=== PATIENT | male | born 1955 | race Caucasian/White ===

== ENCOUNTER 2018-04-05 11:06 | Emergency (ER) | payer MEDICARE, OTHER | END 2018-04-05 13:04 | disposition home or self-care (01) | LOC: FTE 11:06 | DX: J06.9 Acute upper respiratory infection, unspecified (principal); I10 Essential (primary) hypertension; E66.9 Obesity, unspecified; Z68.42 Body mass index [BMI] 45.0-49.9, adult | CPT/HCPCS: 71046; 99284-25 ==

== ENCOUNTER 2018-10-08 23:24 | Inpatient (IN) | payer MEDICARE, OTHER ==
[2018-10-08] MEDS: ONDANSETRON 4 MG INJ IV (23:54)
[2018-10-08] MEDS: HYDROmorphONE 1 MG/ML SYG IV (23:54)
[2018-10-09] MEDS: SOD CHLORIDE 0.9% 1,000 ML IV ×5 (00:24→21:30)
[2018-10-09 00:27] LABS: ADD MAN DIFF? NO; BASOPHILS % 0.3 % (0.0-2.0); EOSINOPHILS % 0.2 % (0.0-7.0); HEMATOCRIT 46.2 % (42.0-52.0); HEMOGLOBIN 15.2 g/dl (14.0-18.0); LYMPHOCYTES # 1.1 10^3/ul (0.8-2.9); LYMPHOCYTES % 9.5 % (15.0-51.0); MEAN CORPUSCULAR HEMOGLOBIN 30.5 pg (29.0-33.0); MEAN CORPUSCULAR HGB CONC 32.9 g/dl (32.0-37.0); MEAN CORPUSCULAR VOLUME 92.6 fl (82.0-101.0); MEAN PLATELET VOLUME 11.5 fl (7.4-10.4); MONOCYTES % 8.2 % (0.0-11.0); NEUTROPHIL # 9.6 10^3/ul (1.6-7.5); NEUTROPHILS % 81.4 % (39.0-77.0); PLATELET COUNT 279 10^3/UL (140-415); RED BLOOD COUNT 4.99 10^6/ul (4.70-6.10)
[2018-10-09 00:27] LABS: WHITE BLOOD COUNT 11.8 10^3/ul (4.8-10.8)
[2018-10-09 00:59] LABS: ALANINE AMINOTRANSFERASE 30 IU/L (13-69); ALBUMIN 4.6 g/dl (3.3-4.9); ALBUMIN/GLOBULIN RATIO 1.27; ALKALINE PHOSPHATASE 81 IU/L (42-121); ANION GAP 19 (5-13); ASPARTATE AMINO TRANSFERASE 20 IU/L (15-46); BILIRUBIN,INDIRECT 0.3 mg/dl (0-1.1); BILIRUBIN,TOTAL 0.3 mg/dl (0.2-1.3); BLOOD UREA NITROGEN 112 mg/dl (7-20); CARBON DIOXIDE 17 mmol/L (21-31); CHLORIDE 102 mmol/L (97-110); CREATININE 7.27 mg/dl (0.61-1.24); Estimated GFR 8 mL/min (>60); GLUCOSE 176 mg/dl (70-220); LIPASE 89 U/L (23-300); POTASSIUM 5.8 mmol/L (3.5-5.1); SODIUM 138 mmol/L (135-144); TOTAL PROTEIN 8.2 g/dl (6.1-8.1)
[2018-10-09] MEDS ORDERED: NACL 0.9% 3 ML SYG IV (04:00)
[2018-10-09] MEDS: NA POLYST SULFON 15 GM/60 ML BTL PO (04:30)
[2018-10-09] MEDS: DEXTROSE 5%-0.45% NACL 1,000 ML IV (04:48)
[2018-10-09] MEDS: ALBUMIN HUMAN 25% 100 ML IV (05:54)
[2018-10-09 08:04] LABS: ADD UMIC YES; UR ASCORBIC ACID NEGATIVE (NEGATIVE); UR BILIRUBIN (Dip) NEGATIVE (NEGATIVE); UR BLOOD (Dip) 1+ mg/dL (NEGATIVE); UR CLARITY CLOUDY (CLEAR); UR COLOR YELLOW (YELLOW); UR GLUCOSE (Dip) NEGATIVE (NEGATIVE); UR KETONES (Dip) NEGATIVE (NEGATIVE); UR LEUKOCYTE ESTERASE (Dip) 2+ Leu/ul (NEGATIVE); UR NITRITE (Dip) NEGATIVE (NEGATIVE); UR RBC 2 /HPF (0-5); UR SPECIFIC GRAVITY (Dip) 1.015 (1.003-1.030); UR TOTAL PROTEIN (Dip) 1+ mg/dl (NEGATIVE); UR UROBILINOGEN (Dip) NEGATIVE (NEGATIVE); UR WBC 28 /HPF (0-5)
[2018-10-09 08:49] LABS: ADD MAN DIFF? NO
[2018-10-09 08:53] LABS: BASOPHILS % 0.3 % (0.0-2.0); EOSINOPHILS % 0.2 % (0.0-7.0); HEMATOCRIT 42.6 % (42.0-52.0); LYMPHOCYTES # 0.8 10^3/ul (0.8-2.9); LYMPHOCYTES % 7.6 % (15.0-51.0); MEAN CORPUSCULAR HEMOGLOBIN 30.5 pg (29.0-33.0); MEAN CORPUSCULAR HGB CONC 32.9 g/dl (32.0-37.0); MEAN CORPUSCULAR VOLUME 92.8 fl (82.0-101.0); MEAN PLATELET VOLUME 11.7 fl (7.4-10.4); MONOCYTE # 1.1 10^3/ul (0.3-0.9); MONOCYTES % 11.4 % (0.0-11.0); NEUTROPHIL # 8.1 10^3/ul (1.6-7.5); NEUTROPHILS % 80.3 % (39.0-77.0); PLATELET COUNT 247 10^3/UL (140-415); RED BLOOD COUNT 4.59 10^6/ul (4.70-6.10); RED CELL DISTRIBUTION WIDTH 14.1 % (11.5-14.5)
[2018-10-09] MEDS: FLUTICASONE 0.05% 16 GM NAS SPRAY NASAL ×3 (09:00→20:53)
[2018-10-09 09:17] LABS: ALANINE AMINOTRANSFERASE 18 IU/L (13-69); ALBUMIN 4.6 g/dl (3.3-4.9); ALBUMIN/GLOBULIN RATIO 1.17; ALKALINE PHOSPHATASE 72 IU/L (42-121); ANION GAP 18 (5-13); ASPARTATE AMINO TRANSFERASE 16 IU/L (15-46); BILIRUBIN,INDIRECT 0.3 mg/dl (0-1.1); BILIRUBIN,TOTAL 0.3 mg/dl (0.2-1.3); BLOOD UREA NITROGEN 114 mg/dl (7-20); CALCIUM 9.7 mg/dl (8.4-10.2); CARBON DIOXIDE 19 mmol/L (21-31); CHLORIDE 102 mmol/L (97-110); CREATININE 7.45 mg/dl (0.61-1.24); Estimated GFR 7 mL/min (>60); GLUCOSE 158 mg/dl (70-220); POTASSIUM 5.1 mmol/L (3.5-5.1); SODIUM 139 mmol/L (135-144); TOTAL PROTEIN 8.5 g/dl (6.1-8.1)
[2018-10-09] MEDS: ONDANSETRON 4 MG INJ IV ×2 (09:27→22:10)
[2018-10-09] MEDS: FAMOTIDINE 20 MG INJ IV (09:27)
[2018-10-09] MEDS: morphine 2 MG INJ IV ×4 (09:28→22:11)
[2018-10-09 13:59] LABS: POTASSIUM,URINE RANDOM 43.7 mmol/L (25-125)
[2018-10-09 14:06] LABS: SODIUM,URINE RANDOM < 13 mmol/L (30-90)
[2018-10-09 14:29] LABS: CREATININE,URINE RANDOM 357.65 mg/dl (20-370)
[2018-10-09 15:25] LABS: ADD UMIC YES; UR ASCORBIC ACID NEGATIVE (NEGATIVE); UR BILIRUBIN (Dip) NEGATIVE (NEGATIVE); UR BLOOD (Dip) 1+ mg/dL (NEGATIVE); UR CLARITY SLIGHTLY CLOUDY (CLEAR); UR COLOR YELLOW (YELLOW); UR GLUCOSE (Dip) NEGATIVE (NEGATIVE); UR KETONES (Dip) NEGATIVE (NEGATIVE); UR LEUKOCYTE ESTERASE (Dip) 1+ Leu/ul (NEGATIVE); UR NITRITE (Dip) NEGATIVE (NEGATIVE); UR RBC 1 /HPF (0-5); UR SPECIFIC GRAVITY (Dip) 1.013 (1.003-1.030); UR TOTAL PROTEIN (Dip) NEGATIVE (NEGATIVE); UR URIC ACID CRYSTAL MODERATE /HPF (NONE SEEN); UR UROBILINOGEN (Dip) NEGATIVE (NEGATIVE); UR WBC 5 /HPF (0-5)
[2018-10-09] MEDS: METOCLOPRAMIDE 10 MG INJ IV (17:53)
[2018-10-10] MEDS: METOCLOPRAMIDE 10 MG INJ IV ×5 (00:31→23:09)
[2018-10-10] MEDS: morphine 2 MG INJ IV ×6 (02:07→23:10)
[2018-10-10] MEDS: ONDANSETRON 4 MG INJ IV ×4 (02:10→19:01)
[2018-10-10] MEDS: SOD CHLORIDE 0.9% 1,000 ML IV ×2 (04:19→05:30)
[2018-10-10 07:20] LABS: ADD MAN DIFF? NO
[2018-10-10 07:30] LABS: BASOPHIL # 0.1 10^3/ul (0.0-0.1); BASOPHILS % 0.7 % (0.0-2.0); EOSINOPHILS # 0.1 10^3/ul (0.0-0.5); EOSINOPHILS % 1.8 % (0.0-7.0); HEMATOCRIT 41.3 % (42.0-52.0); HEMOGLOBIN 13.4 g/dl (14.0-18.0); LYMPHOCYTES # 0.9 10^3/ul (0.8-2.9); LYMPHOCYTES % 12.7 % (15.0-51.0); MEAN CORPUSCULAR HEMOGLOBIN 30.3 pg (29.0-33.0); MEAN CORPUSCULAR HGB CONC 32.4 g/dl (32.0-37.0); MEAN CORPUSCULAR VOLUME 93.4 fl (82.0-101.0); MEAN PLATELET VOLUME 11.7 fl (7.4-10.4); MONOCYTE # 1.1 10^3/ul (0.3-0.9); MONOCYTES % 14.8 % (0.0-11.0); NEUTROPHILS % 69.7 % (39.0-77.0); PLATELET COUNT 219 10^3/UL (140-415); RED BLOOD COUNT 4.42 10^6/ul (4.70-6.10); RED CELL DISTRIBUTION WIDTH 14.5 % (11.5-14.5)
[2018-10-10 07:30] LABS: WHITE BLOOD COUNT 7.2 10^3/ul (4.8-10.8)
[2018-10-10 07:46] LABS: ANION GAP 13 (5-13); BLOOD UREA NITROGEN 97 mg/dl (7-20); CALCIUM 9.4 mg/dl (8.4-10.2); CARBON DIOXIDE 20 mmol/L (21-31); CHLORIDE 112 mmol/L (97-110); CREATININE 4.08 mg/dl (0.61-1.24); Estimated GFR 15 mL/min (>60); GLUCOSE 124 mg/dl (70-220); MAGNESIUM 1.6 mg/dl (1.7-2.5); PHOSPHORUS 5.1 mg/dl (2.5-4.9); POTASSIUM 5.1 mmol/L (3.5-5.1); SODIUM 145 mmol/L (135-144)
[2018-10-10] MEDS: FLUTICASONE 0.05% 16 GM NAS SPRAY NASAL ×2 (08:52→21:31)
[2018-10-10] MEDS: SOD CHLORIDE 0.45% 1,000 ML IV ×3 (08:52→17:23)
[2018-10-10] MEDS: FAMOTIDINE 20 MG INJ IV (08:52)
[2018-10-10] MEDS: MAGNESIUM SULFATE 1 GM/D5W 100 ML IVPB (11:50)
[2018-10-10] MEDS: DIATR MEGLU/DIATRIZOATE SODIUM 120 ML BTL (11:50)
[2018-10-10] MEDS ORDERED: METOCLOPRAMIDE 10 MG INJ IV (12:30)
[2018-10-10] MEDS: POLYETHYLENE GLYCOL 17 GM PACKET PO (14:52)
[2018-10-10] MEDS ORDERED: HEPARIN 5,000 UNIT/0.5 ML VIAL (21:17)
[2018-10-10] MEDS: HEPARIN 5,000 UNIT/1 ML VIAL SC (21:36)
[2018-10-11] MEDS: SOD CHLORIDE 0.45% 1,000 ML IV ×4 (00:48→17:04)
[2018-10-11] MEDS: morphine 2 MG INJ IV ×2 (03:02→07:08)
[2018-10-11] MEDS: ONDANSETRON 4 MG INJ IV (03:02)
[2018-10-11] MEDS: METOCLOPRAMIDE 10 MG INJ IV ×3 (07:07→17:03)
[2018-10-11] MEDS ORDERED: HEPARIN 5,000 UNIT/0.5 ML VIAL ×2 (08:54→19:23)
[2018-10-11 08:59] LABS: ADD MAN DIFF? NO
[2018-10-11 09:02] LABS: WHITE BLOOD COUNT 8.7 10^3/ul (4.8-10.8)
[2018-10-11 09:02] LABS: BASOPHILS % 0.5 % (0.0-2.0); EOSINOPHILS # 0.2 10^3/ul (0.0-0.5); EOSINOPHILS % 2.4 % (0.0-7.0); HEMATOCRIT 42.4 % (42.0-52.0); HEMOGLOBIN 13.7 g/dl (14.0-18.0); LYMPHOCYTES # 0.9 10^3/ul (0.8-2.9); LYMPHOCYTES % 9.9 % (15.0-51.0); MEAN CORPUSCULAR HEMOGLOBIN 30.9 pg (29.0-33.0); MEAN CORPUSCULAR HGB CONC 32.3 g/dl (32.0-37.0); MEAN CORPUSCULAR VOLUME 95.7 fl (82.0-101.0); MONOCYTE # 1.2 10^3/ul (0.3-0.9); MONOCYTES % 14.2 % (0.0-11.0); NEUTROPHIL # 6.3 10^3/ul (1.6-7.5); NEUTROPHILS % 72.8 % (39.0-77.0); PLATELET COUNT 206 10^3/UL (140-415); RED BLOOD COUNT 4.43 10^6/ul (4.70-6.10); RED CELL DISTRIBUTION WIDTH 14.3 % (11.5-14.5)
[2018-10-11] MEDS: POLYETHYLENE GLYCOL 17 GM PACKET PO (09:12)
[2018-10-11] MEDS: FAMOTIDINE 20 MG INJ IV (09:12)
[2018-10-11] MEDS: FLUTICASONE 0.05% 16 GM NAS SPRAY NASAL ×2 (09:14→19:25)
[2018-10-11] MEDS: HEPARIN 5,000 UNIT/1 ML VIAL SC ×2 (09:24→19:27)
[2018-10-11 09:34] LABS: ANION GAP 12 (5-13); BLOOD UREA NITROGEN 63 mg/dl (7-20); CALCIUM 9.5 mg/dl (8.4-10.2); CARBON DIOXIDE 21 mmol/L (21-31); CHLORIDE 113 mmol/L (97-110); CREATININE 1.87 mg/dl (0.61-1.24); Estimated GFR 37 mL/min (>60); GLUCOSE 123 mg/dl (70-220); MAGNESIUM 1.7 mg/dl (1.7-2.5); PHOSPHORUS 3.8 mg/dl (2.5-4.9); POTASSIUM 5.9 mmol/L (3.5-5.1); SODIUM 146 mmol/L (135-144)
[2018-10-11] MEDS: HYDROCODONE/APAP (7.5/325) TAB PO ×2 (13:00→19:25)
[2018-10-11 14:46] LABS: POTASSIUM 4.9 mmol/L (3.5-5.1)
[2018-10-11 15:46] LABS: CREATININE, RANDOM URINE 354 mg/dL (20-320); MICROALBUMIN 8.5 mg/dL; MICROALBUMIN/CREATININE RATIO 24 (<30)
[2018-10-12] MEDS: HYDROCODONE/APAP (7.5/325) TAB PO ×2 (00:56→22:09)
[2018-10-12] MEDS: METOCLOPRAMIDE 10 MG INJ IV ×4 (00:56→17:38)
[2018-10-12] MEDS: SOD CHLORIDE 0.45% 1,000 ML IV ×5 (00:56→20:09)
[2018-10-12 08:42] LABS: ADD MAN DIFF? NO
[2018-10-12 08:46] LABS: BASOPHIL # 0.1 10^3/ul (0.0-0.1); BASOPHILS % 0.6 % (0.0-2.0); EOSINOPHILS # 0.4 10^3/ul (0.0-0.5); EOSINOPHILS % 4.8 % (0.0-7.0); HEMATOCRIT 42.1 % (42.0-52.0); HEMOGLOBIN 13.8 g/dl (14.0-18.0); LYMPHOCYTES # 1.4 10^3/ul (0.8-2.9); MEAN CORPUSCULAR HEMOGLOBIN 30.7 pg (29.0-33.0); MEAN CORPUSCULAR HGB CONC 32.8 g/dl (32.0-37.0); MEAN CORPUSCULAR VOLUME 93.6 fl (82.0-101.0); MEAN PLATELET VOLUME 11.9 fl (7.4-10.4); MONOCYTE # 1.2 10^3/ul (0.3-0.9); MONOCYTES % 13.5 % (0.0-11.0); NEUTROPHIL # 5.6 10^3/ul (1.6-7.5); NEUTROPHILS % 64.8 % (39.0-77.0); PLATELET COUNT 220 10^3/UL (140-415)
[2018-10-12 08:46] LABS: WHITE BLOOD COUNT 8.7 10^3/ul (4.8-10.8)
[2018-10-12] MEDS: FLUTICASONE 0.05% 16 GM NAS SPRAY NASAL ×2 (09:00→20:14)
[2018-10-12 09:07] LABS: ANION GAP 11 (5-13); BLOOD UREA NITROGEN 34 mg/dl (7-20); CALCIUM 9.4 mg/dl (8.4-10.2); CARBON DIOXIDE 23 mmol/L (21-31); CHLORIDE 105 mmol/L (97-110); CREATININE 1.43 mg/dl (0.61-1.24); Estimated GFR 50 mL/min (>60); GLUCOSE 124 mg/dl (70-220); MAGNESIUM 1.3 mg/dl (1.7-2.5); PHOSPHORUS 3.3 mg/dl (2.5-4.9); POTASSIUM 4.5 mmol/L (3.5-5.1); SODIUM 139 mmol/L (135-144)
[2018-10-12] MEDS ORDERED: HEPARIN 5,000 UNIT/0.5 ML VIAL ×2 (09:13→20:12)
[2018-10-12] MEDS: HEPARIN 5,000 UNIT/1 ML VIAL SC ×2 (09:21→20:14)
[2018-10-12] MEDS: POLYETHYLENE GLYCOL 17 GM PACKET PO (09:23)
[2018-10-12] MEDS: FAMOTIDINE 20 MG INJ IV (09:23)
[2018-10-12] MEDS: LACTATED RINGER'S 500 ML IV (14:49)
[2018-10-12] MEDS: MAGNESIUM SULFATE 2 GM/50 ML 50 ML IVPB (16:37)
[2018-10-13] MEDS: SOD CHLORIDE 0.45% 1,000 ML IV ×2 (02:51→10:25)
[2018-10-13] MEDS: METOCLOPRAMIDE 10 MG INJ IV ×3 (06:00→12:42)
[2018-10-13] MEDS: ONDANSETRON 4 MG INJ IV (07:36)
[2018-10-13] MEDS: POLYETHYLENE GLYCOL 17 GM PACKET PO (08:06)
[2018-10-13] MEDS: FLUTICASONE 0.05% 16 GM NAS SPRAY NASAL (08:06)
[2018-10-13] MEDS ORDERED: HEPARIN 5,000 UNIT/0.5 ML VIAL (08:07)
[2018-10-13] MEDS: FAMOTIDINE 20 MG INJ IV (08:09)
[2018-10-13] MEDS: HEPARIN 5,000 UNIT/1 ML VIAL SC (08:29)
== END 2018-10-13 14:30 | disposition home or self-care (01) | DRG 389 ==
LOC: E/R 23:24 → 5EC 10-09 02:53
PROVIDERS: Internal Medicine
DX: K56.600 Partial intestinal obstruction, unspecified as to cause (principal); N17.9 Acute kidney failure, unspecified; E87.2 Acidosis; Z68.42 Body mass index [BMI] 45.0-49.9, adult; E66.01 Morbid (severe) obesity due to excess calories; E87.5 Hyperkalemia; I48.0 Paroxysmal atrial fibrillation; E86.0 Dehydration; I12.9 Hypertensive chronic kidney disease with stage 1 through stage 4 chronic kidney disease, or unspecified chronic kidney disease; N18.2 Chronic kidney disease, stage 2 (mild); E87.6 Hypokalemia; N40.0 Benign prostatic hyperplasia without lower urinary tract symptoms; R11.10 Vomiting, unspecified; N20.0 Calculus of kidney; Z87.891 Personal history of nicotine dependence; Z90.49 Acquired absence of other specified parts of digestive tract
CPT/HCPCS: 71045; 74018; 74176; 76775; 80048; 80053; 81001; 81003; 82043; 82436; 82962; 83690; 83735; 84100; 84132; 84133; 84155; 84300; 85025; 87045; 87075

== ENCOUNTER 2019-06-09 03:21 | Inpatient (IN) | payer MEDICARE, OTHER ==
[2019-06-09] MEDS: SOD CHLORIDE 0.9% 1,000 ML IV ×2 (03:51→11:21)
[2019-06-09] MEDS: ONDANSETRON 4 MG INJ IV ×4 (03:51→22:30)
[2019-06-09] MEDS: KETOROLAC 30 MG INJ IV (03:51)
[2019-06-09 04:23] LABS: ADD MAN DIFF? NO
[2019-06-09 04:26] LABS: BASOPHILS % 0.3 % (0.0-2.0); EOSINOPHILS % 0.2 % (0.0-7.0); HEMATOCRIT 46.5 % (42.0-52.0); HEMOGLOBIN 15.7 g/dl (14.0-18.0); LYMPHOCYTES # 0.9 10^3/ul (0.8-2.9); LYMPHOCYTES % 7.4 % (15.0-51.0); MEAN CORPUSCULAR HEMOGLOBIN 30.6 pg (29.0-33.0); MEAN CORPUSCULAR HGB CONC 33.8 g/dl (32.0-37.0); MEAN CORPUSCULAR VOLUME 90.6 fl (82.0-101.0); MEAN PLATELET VOLUME 11.1 fl (7.4-10.4); MONOCYTE # 0.8 10^3/ul (0.3-0.9); MONOCYTES % 6.3 % (0.0-11.0); NEUTROPHIL # 10.6 10^3/ul (1.6-7.5); NEUTROPHILS % 85.5 % (39.0-77.0); PLATELET COUNT 333 10^3/UL (140-415); RED BLOOD COUNT 5.13 10^6/ul (4.70-6.10); RED CELL DISTRIBUTION WIDTH 13.2 % (11.5-14.5)
[2019-06-09 04:26] LABS: WHITE BLOOD COUNT 12.4 10^3/ul (4.8-10.8)
[2019-06-09 04:43] LABS: ALANINE AMINOTRANSFERASE 31 IU/L (13-69); ALBUMIN 4.8 g/dl (3.3-4.9); ALBUMIN/GLOBULIN RATIO 0.97; ALKALINE PHOSPHATASE 102 IU/L (42-121); ANION GAP 21 (5-13); ASPARTATE AMINO TRANSFERASE 22 IU/L (15-46); BILIRUBIN,INDIRECT 0.6 mg/dl (0-1.1); BILIRUBIN,TOTAL 0.6 mg/dl (0.2-1.3); BLOOD UREA NITROGEN 102 mg/dl (7-20); CALCIUM 10.2 mg/dl (8.4-10.2); CARBON DIOXIDE 18 mmol/L (21-31); CHLORIDE 98 mmol/L (97-110); Estimated GFR 5 mL/min (>60); GLUCOSE 180 mg/dl (70-220); LIPASE 204 U/L (23-300); POTASSIUM 5.2 mmol/L (3.5-5.1); SODIUM 137 mmol/L (135-144); TOTAL PROTEIN 9.7 g/dl (6.1-8.1)
[2019-06-09] MEDS: OXYCODONE/ACETAMINOPHEN (5/325) TAB PO (04:57)
[2019-06-09 05:02] LABS: INR 1.14; PROTIME 14.7 Sec (11.9-14.9); PT RATIO 1.1
[2019-06-09 05:03] LABS: PARTIAL THROMBOPLASTIN TIME 33.6 Sec (23.0-35.0)
[2019-06-09] MEDS ORDERED: ADENOSINE 3 MG/ML SYRINGE IV (07:00)
[2019-06-09] MEDS ORDERED: morphine 4 MG/ML VIAL (07:19)
[2019-06-09] MEDS: morphine 4 MG/ML VIAL IV ×3 (07:22→22:30)
[2019-06-09] MEDS: morphine 2 MG INJ IV ×2 (10:32→11:21)
[2019-06-09] MEDS ORDERED: ZOLPIDEM 5 MG TAB PO (11:30)
[2019-06-09 11:44] LABS: PHOSPHORUS 8.8 mg/dl (2.5-4.9)
[2019-06-09 11:44] LABS: MAGNESIUM 1.6 mg/dl (1.7-2.5)
[2019-06-09 11:46] LABS: ANION GAP 18 (5-13); BLOOD UREA NITROGEN 106 mg/dl (7-20); CALCIUM 9.3 mg/dl (8.4-10.2); CARBON DIOXIDE 15 mmol/L (21-31); CHLORIDE 103 mmol/L (97-110); CREATININE 9.97 mg/dl (0.61-1.24); Estimated GFR 5 mL/min (>60); GLUCOSE 158 mg/dl (70-220); POTASSIUM 5.2 mmol/L (3.5-5.1); SODIUM 136 mmol/L (135-144)
[2019-06-09 11:50] LABS: AADO2 Arterial 34.8 mmHg (7.0-24.0); Allen Test ACCEPTAB; Arterial Base Excess -10.8 mmol/L (-3.0-3); Arterial Blood Gas Oxygen Sat 93.1 mmHG (95.0-98.0); Arterial COHb 0.6 % (0.0-3.0); Arterial Fraction of Oxyhgb 92.3 % (93.0-99.0); Arterial HCO3 15.1 mmol/L (22.0-26.0); Arterial MetHb 0.3 % (0.0-1.5); Arterial pCO2 34.3 mmhg (35-45); MODE ROOM AIR; Site Right Radial
[2019-06-09 12:16] LABS: CREATINE KINASE 56 IU/L (23-200)
[2019-06-09 12:29] LABS: CK INDEX 1.8; CK-MB 1.03 ng/ml (0.0-2.4); TROPONIN-I < 0.012 ng/ml (0.000-0.120)
[2019-06-09] MEDS: PIPER-TAZO 2.25 GM (PMX) 50 ML IVPB ×2 (14:01→21:57)
[2019-06-09] MEDS: SODIUM BICARBONATE IN D5W 1,000 ML IV (14:01)
[2019-06-09 18:42] LABS: ANION GAP 19 (5-13); BLOOD UREA NITROGEN 108 mg/dl (7-20); CALCIUM 9.1 mg/dl (8.4-10.2); CARBON DIOXIDE 14 mmol/L (21-31); CHLORIDE 102 mmol/L (97-110); CREATINE KINASE 49 IU/L (23-200); CREATININE 9.63 mg/dl (0.61-1.24); Estimated GFR 6 mL/min (>60); GLUCOSE 131 mg/dl (70-220); POTASSIUM 5.5 mmol/L (3.5-5.1); SODIUM 135 mmol/L (135-144)
[2019-06-09 18:47] LABS: ADD UMIC YES; UR ASCORBIC ACID NEGATIVE (NEGATIVE); UR BACTERIA FEW /HPF (NONE SEEN); UR BILIRUBIN (Dip) NEGATIVE (NEGATIVE); UR BLOOD (Dip) 3+ mg/dL (NEGATIVE); UR CLARITY CLOUDY (CLEAR); UR COLOR AMBER (YELLOW); UR GLUCOSE (Dip) NEGATIVE (NEGATIVE); UR HYALINE CAST FEW /HPF (NONE SEEN); UR KETONES (Dip) NEGATIVE (NEGATIVE); UR LEUKOCYTE ESTERASE (Dip) 1+ Leu/ul (NEGATIVE); UR NITRITE (Dip) NEGATIVE (NEGATIVE); UR RBC 142 /HPF (0-5); UR SPECIFIC GRAVITY (Dip) 1.017 (1.003-1.030); UR SQUAMOUS EPITHELIAL CELL FEW /HPF (FEW); UR TOTAL PROTEIN (Dip) 1+ mg/dl (NEGATIVE); UR UROBILINOGEN (Dip) NEGATIVE (NEGATIVE); UR WBC 25 /HPF (0-5)
[2019-06-09 18:54] LABS: CK INDEX 1.8; CK-MB 0.88 ng/ml (0.0-2.4); TROPONIN-I < 0.012 ng/ml (0.000-0.120)
[2019-06-09 18:59] LABS: SODIUM,URINE RANDOM < 13 mmol/L (30-90)
[2019-06-09] MEDS: MAGNESIUM SULFATE 1 GM/D5W 100 ML IVPB (20:11)
[2019-06-09] MEDS ORDERED: traZODone 50 MG TAB PO (21:00)
[2019-06-09] MEDS: TAMSULOSIN (SR) 0.4 MG CAP PO (21:57)
[2019-06-09 23:34] LABS: CREATINE KINASE 57 IU/L (23-200)
[2019-06-09 23:44] LABS: CK INDEX 1.7; CK-MB 0.97 ng/ml (0.0-2.4)
[2019-06-10 00:08] LABS: TROPONIN-I < 0.012 ng/ml (0.000-0.120)
[2019-06-10] MEDS: ONDANSETRON 4 MG INJ IV ×4 (04:45→23:17)
[2019-06-10] MEDS: morphine 4 MG/ML VIAL IV ×4 (04:45→23:03)
[2019-06-10] MEDS: SODIUM BICARBONATE IN D5W 1,000 ML IV (05:08)
[2019-06-10] MEDS: PIPER-TAZO 2.25 GM (PMX) 50 ML IVPB ×3 (06:21→21:36)
[2019-06-10 06:44] LABS: ADD MAN DIFF? NO
[2019-06-10 06:48] LABS: BASOPHILS % 0.4 % (0.0-2.0); EOSINOPHILS # 0.1 10^3/ul (0.0-0.5); EOSINOPHILS % 0.5 % (0.0-7.0); HEMATOCRIT 42.2 % (42.0-52.0); LYMPHOCYTES # 0.9 10^3/ul (0.8-2.9); MEAN CORPUSCULAR HEMOGLOBIN 29.8 pg (29.0-33.0); MEAN CORPUSCULAR HGB CONC 33.2 g/dl (32.0-37.0); MEAN CORPUSCULAR VOLUME 89.8 fl (82.0-101.0); MEAN PLATELET VOLUME 11.1 fl (7.4-10.4); MONOCYTE # 1.1 10^3/ul (0.3-0.9); MONOCYTES % 10.9 % (0.0-11.0); NEUTROPHIL # 7.6 10^3/ul (1.6-7.5); PLATELET COUNT 233 10^3/UL (140-415); RED CELL DISTRIBUTION WIDTH 13.2 % (11.5-14.5)
[2019-06-10 06:48] LABS: WHITE BLOOD COUNT 9.7 10^3/ul (4.8-10.8)
[2019-06-10 07:22] LABS: ALANINE AMINOTRANSFERASE 26 IU/L (13-69); ALKALINE PHOSPHATASE 75 IU/L (42-121); ANION GAP 14 (5-13); ASPARTATE AMINO TRANSFERASE 19 IU/L (15-46); BILIRUBIN,INDIRECT 0.9 mg/dl (0-1.1); BILIRUBIN,TOTAL 0.9 mg/dl (0.2-1.3); BLOOD UREA NITROGEN 114 mg/dl (7-20); CALCIUM 8.7 mg/dl (8.4-10.2); CARBON DIOXIDE 24 mmol/L (21-31); CHLORIDE 99 mmol/L (97-110); CREATININE 6.83 mg/dl (0.61-1.24); Estimated GFR 8 mL/min (>60); GLUCOSE 176 mg/dl (70-220); SODIUM 137 mmol/L (135-144)
[2019-06-10 07:23] LABS: PHOSPHORUS 6.1 mg/dl (2.5-4.9)
[2019-06-10 07:23] LABS: MAGNESIUM 1.8 mg/dl (1.7-2.5)
[2019-06-10 07:33] LABS: DIGOXIN < 0.4 ng/ml (1.0-2.0)
[2019-06-10 07:47] LABS: THYROID STIMULATING HORMONE 0.367 MIU/L (0.465-4.680)
[2019-06-10] MEDS: SOD CHLORIDE 0.9% 1,000 ML IV (09:57)
[2019-06-10 12:22] LABS: CREATINE KINASE 45 IU/L (23-200)
[2019-06-10 13:48] LABS: ADD UMIC YES; UR ASCORBIC ACID NEGATIVE (NEGATIVE); UR BILIRUBIN (Dip) NEGATIVE (NEGATIVE); UR BLOOD (Dip) 2+ mg/dL (NEGATIVE); UR CLARITY CLEAR (CLEAR); UR COLOR YELLOW (YELLOW); UR GLUCOSE (Dip) NEGATIVE (NEGATIVE); UR KETONES (Dip) NEGATIVE (NEGATIVE); UR LEUKOCYTE ESTERASE (Dip) TRACE Leu/ul (NEGATIVE); UR NITRITE (Dip) NEGATIVE (NEGATIVE); UR RBC 5 /HPF (0-5); UR SPECIFIC GRAVITY (Dip) 1.017 (1.003-1.030); UR TOTAL PROTEIN (Dip) NEGATIVE (NEGATIVE); UR UROBILINOGEN (Dip) NEGATIVE (NEGATIVE); UR WBC 10 /HPF (0-5)
[2019-06-10 18:47] LABS: ANION GAP 13 (5-13); BLOOD UREA NITROGEN 106 mg/dl (7-20); CALCIUM 8.9 mg/dl (8.4-10.2); CARBON DIOXIDE 21 mmol/L (21-31); CHLORIDE 101 mmol/L (97-110); CREATININE 4.15 mg/dl (0.61-1.24); Estimated GFR 15 mL/min (>60); GLUCOSE 180 mg/dl (70-220); POTASSIUM 3.8 mmol/L (3.5-5.1); SODIUM 135 mmol/L (135-144)
[2019-06-10] MEDS: TAMSULOSIN (SR) 0.4 MG CAP PO (21:36)
[2019-06-10] MEDS: APIXABAN 5 MG TABLET PO (21:36)
[2019-06-11] MEDS: SOD CHLORIDE 0.9% 1,000 ML IV ×3 (04:10→15:37)
[2019-06-11] MEDS: morphine 4 MG/ML VIAL IV (05:03)
[2019-06-11] MEDS: ONDANSETRON 4 MG INJ IV ×3 (05:03→20:27)
[2019-06-11] MEDS: PIPER-TAZO 2.25 GM (PMX) 50 ML IVPB (05:03)
[2019-06-11 07:03] LABS: ADD MAN DIFF? NO
[2019-06-11 07:08] LABS: WHITE BLOOD COUNT 8.8 10^3/ul (4.8-10.8)
[2019-06-11 07:08] LABS: ABNORMAL IP MESSAGE 1; BASOPHILS % 0.3 % (0.0-2.0); EOSINOPHILS # 0.1 10^3/ul (0.0-0.5); EOSINOPHILS % 0.6 % (0.0-7.0); HEMATOCRIT 38.4 % (42.0-52.0); HEMOGLOBIN 12.8 g/dl (14.0-18.0); LYMPHOCYTES # 0.7 10^3/ul (0.8-2.9); MEAN CORPUSCULAR HEMOGLOBIN 30.3 pg (29.0-33.0); MEAN CORPUSCULAR HGB CONC 33.3 g/dl (32.0-37.0); MEAN CORPUSCULAR VOLUME 90.8 fl (82.0-101.0); MEAN PLATELET VOLUME 11.7 fl (7.4-10.4); MONOCYTE # 1.5 10^3/ul (0.3-0.9); MONOCYTES % 17.5 % (0.0-11.0); NEUTROPHIL # 6.4 10^3/ul (1.6-7.5); NEUTROPHILS % 73.1 % (39.0-77.0); PLATELET COUNT 238 10^3/UL (140-415); POSITIVE DIFF @See below; RED BLOOD COUNT 4.23 10^6/ul (4.70-6.10); RED CELL DISTRIBUTION WIDTH 13.2 % (11.5-14.5)
[2019-06-11 07:29] LABS: ANION GAP 11 (5-13); BLOOD UREA NITROGEN 87 mg/dl (7-20); CARBON DIOXIDE 23 mmol/L (21-31); CHLORIDE 103 mmol/L (97-110); CREATININE 2.55 mg/dl (0.61-1.24); Estimated GFR 26 mL/min (>60); GLUCOSE 188 mg/dl (70-220); SODIUM 137 mmol/L (135-144)
[2019-06-11] MEDS: APIXABAN 5 MG TABLET PO ×2 (09:05→20:27)
[2019-06-11] MEDS: METOPROLOL 25 MG TAB PO ×2 (09:06→20:27)
[2019-06-11] MEDS: metroNIDAZOLE 500 MG/NS (PMX) 100 ML IVPB ×2 (11:45→22:00)
[2019-06-11] MEDS: morphine 2 MG INJ IV (11:45)
[2019-06-11] MEDS: DOCUSATE SODIUM 250 MG CAP PO (11:46)
[2019-06-11] MEDS ORDERED: morphine 2 MG INJ IV (15:00)
[2019-06-11] MEDS: TAMSULOSIN (SR) 0.4 MG CAP PO (20:27)
[2019-06-11] MEDS: CIPROFLOXACIN 400MG/D5W 200 ML IVPB (20:28)
[2019-06-11] MEDS: HYDROCODONE/APAP (7.5/325) TAB PO (20:28)
[2019-06-12] MEDS: METOCLOPRAMIDE 10 MG INJ IV ×4 (00:45→22:13)
[2019-06-12] MEDS: ONDANSETRON 4 MG INJ IV ×3 (02:25→18:14)
[2019-06-12] MEDS: morphine 2 MG INJ IV ×2 (02:25→08:30)
[2019-06-12] MEDS: metroNIDAZOLE 500 MG/NS (PMX) 100 ML IVPB (06:30)
[2019-06-12 06:55] LABS: ADD MAN DIFF? NO
[2019-06-12 07:03] LABS: ABNORMAL IP MESSAGE 1; BASOPHILS % 0.3 % (0.0-2.0); EOSINOPHILS % 0.2 % (0.0-7.0); HEMATOCRIT 34.3 % (42.0-52.0); HEMOGLOBIN 10.9 g/dl (14.0-18.0); LYMPHOCYTES # 0.4 10^3/ul (0.8-2.9); LYMPHOCYTES % 2.6 % (15.0-51.0); MEAN CORPUSCULAR HEMOGLOBIN 30.3 pg (29.0-33.0); MEAN CORPUSCULAR HGB CONC 31.8 g/dl (32.0-37.0); MEAN CORPUSCULAR VOLUME 95.3 fl (82.0-101.0); MEAN PLATELET VOLUME 12.2 fl (7.4-10.4); MONOCYTE # 0.9 10^3/ul (0.3-0.9); MONOCYTES % 6.1 % (0.0-11.0); NEUTROPHIL # 13.8 10^3/ul (1.6-7.5); NEUTROPHILS % 90.4 % (39.0-77.0); PLATELET COUNT 197 10^3/UL (140-415); POSITIVE DIFF @See below; RED CELL DISTRIBUTION WIDTH 13.2 % (11.5-14.5)
[2019-06-12 07:03] LABS: WHITE BLOOD COUNT 15.2 10^3/ul (4.8-10.8)
[2019-06-12 07:23] LABS: ANION GAP 10 (5-13); BLOOD UREA NITROGEN 73 mg/dl (7-20); CALCIUM 8.7 mg/dl (8.4-10.2); CARBON DIOXIDE 24 mmol/L (21-31); CHLORIDE 102 mmol/L (97-110); Estimated GFR 38 mL/min (>60); GLUCOSE 183 mg/dl (70-220); POTASSIUM 4.8 mmol/L (3.5-5.1); SODIUM 136 mmol/L (135-144)
[2019-06-12] MEDS: SOD CHLORIDE 0.9% 1,000 ML IV (08:28)
[2019-06-12] MEDS: DOCUSATE SODIUM 250 MG CAP PO (08:29)
[2019-06-12] MEDS: APIXABAN 5 MG TABLET PO ×2 (08:29→20:36)
[2019-06-12] MEDS: CIPROFLOXACIN 400MG/D5W 200 ML IVPB (08:29)
[2019-06-12] MEDS: METOPROLOL 25 MG TAB PO (08:30)
[2019-06-12] MEDS: DILTIAZEM 25 MG INJ IV (09:23)
[2019-06-12] MEDS: ADENOSINE 3 MG/ML SYRINGE IV (09:24)
[2019-06-12] MEDS ORDERED: DILTIAZEM 25 MG INJ IV (10:30)
[2019-06-12] MEDS: PIPER-TAZO 3.375 GM IV (PMX) 100 ML IVPB ×2 (10:34→15:38)
[2019-06-12] MEDS: POLYETHYLENE GLYCOL 17 GM PACKET PO (10:34)
[2019-06-12 10:51] LABS: ALANINE AMINOTRANSFERASE 27 IU/L (13-69); ALBUMIN 3.5 g/dl (3.3-4.9); ALKALINE PHOSPHATASE 63 IU/L (42-121); ASPARTATE AMINO TRANSFERASE 26 IU/L (15-46); BILIRUBIN,INDIRECT 0.6 mg/dl (0-1.1); BILIRUBIN,TOTAL 0.6 mg/dl (0.2-1.3); MAGNESIUM 1.5 mg/dl (1.7-2.5); PHOSPHORUS 1.9 mg/dl (2.5-4.9); TOTAL PROTEIN 7.3 g/dl (6.1-8.1)
[2019-06-12] MEDS: MAGNESIUM SULFATE 2 GM/50 ML 50 ML IVPB (18:09)
[2019-06-12] MEDS: TAMSULOSIN (SR) 0.4 MG CAP PO (20:36)
[2019-06-12] MEDS: METOPROLOL 50 MG TAB PO (20:36)
[2019-06-12] MEDS: HYDROCODONE/APAP (7.5/325) TAB PO (20:37)
[2019-06-12] MEDS: SODIUM PHOSPHATE 15 MMOL in SOD CHLORIDE 0.9% 250 ML IVPB (20:38)
[2019-06-13] MEDS: ONDANSETRON 4 MG INJ IV ×3 (00:19→20:25)
[2019-06-13] MEDS: PIPER-TAZO 3.375 GM IV (PMX) 100 ML IVPB ×4 (01:54→22:23)
[2019-06-13] MEDS: HYDROCODONE/APAP (7.5/325) TAB PO ×3 (03:06→20:25)
[2019-06-13] MEDS: METOCLOPRAMIDE 10 MG INJ IV ×4 (04:27→22:23)
[2019-06-13 05:59] LABS: ADD MAN DIFF? NO
[2019-06-13 06:02] LABS: ABNORMAL IP MESSAGE 1; BASOPHIL # 0.1 10^3/ul (0.0-0.1); BASOPHILS % 0.4 % (0.0-2.0); EOSINOPHILS # 0.2 10^3/ul (0.0-0.5); EOSINOPHILS % 0.9 % (0.0-7.0); HEMATOCRIT 34.2 % (42.0-52.0); HEMOGLOBIN 10.9 g/dl (14.0-18.0); LYMPHOCYTES # 0.8 10^3/ul (0.8-2.9); MEAN CORPUSCULAR HGB CONC 31.9 g/dl (32.0-37.0); MEAN CORPUSCULAR VOLUME 94.2 fl (82.0-101.0); MEAN PLATELET VOLUME 12.1 fl (7.4-10.4); MONOCYTE # 2.4 10^3/ul (0.3-0.9); MONOCYTES % 14.5 % (0.0-11.0); NEUTROPHIL # 12.9 10^3/ul (1.6-7.5); NEUTROPHILS % 78.8 % (39.0-77.0); PLATELET COUNT 221 10^3/UL (140-415); POSITIVE DIFF @See below; RED BLOOD COUNT 3.63 10^6/ul (4.70-6.10); RED CELL DISTRIBUTION WIDTH 13.2 % (11.5-14.5)
[2019-06-13 06:02] LABS: WHITE BLOOD COUNT 16.3 10^3/ul (4.8-10.8)
[2019-06-13 06:59] LABS: ANION GAP 11 (5-13); BLOOD UREA NITROGEN 54 mg/dl (7-20); CALCIUM 9.5 mg/dl (8.4-10.2); CARBON DIOXIDE 24 mmol/L (21-31); CHLORIDE 104 mmol/L (97-110); CREATININE 1.67 mg/dl (0.61-1.24); Estimated GFR 42 mL/min (>60); GLUCOSE 148 mg/dl (70-220); MAGNESIUM 1.9 mg/dl (1.7-2.5); PHOSPHORUS 3.5 mg/dl (2.5-4.9); POTASSIUM 4.9 mmol/L (3.5-5.1); SODIUM 139 mmol/L (135-144)
[2019-06-13] MEDS: DOCUSATE SODIUM 250 MG CAP PO (08:32)
[2019-06-13] MEDS: POLYETHYLENE GLYCOL 17 GM PACKET PO (08:32)
[2019-06-13] MEDS: APIXABAN 5 MG TABLET PO ×2 (08:32→20:25)
[2019-06-13] MEDS: METOPROLOL 50 MG TAB PO ×2 (08:36→20:32)
[2019-06-13] MEDS: TAMSULOSIN (SR) 0.4 MG CAP PO (20:25)
[2019-06-14] MEDS: METOCLOPRAMIDE 10 MG INJ IV (04:30)
[2019-06-14] MEDS: PIPER-TAZO 3.375 GM IV (PMX) 100 ML IVPB ×2 (05:56→13:50)
[2019-06-14] MEDS: HYDROCODONE/APAP (7.5/325) TAB PO ×2 (06:15→12:36)
[2019-06-14 06:41] LABS: ADD MAN DIFF? NO
[2019-06-14 06:46] LABS: ABNORMAL IP MESSAGE 1; BASOPHIL # 0.1 10^3/ul (0.0-0.1); BASOPHILS % 0.5 % (0.0-2.0); EOSINOPHILS # 0.3 10^3/ul (0.0-0.5); EOSINOPHILS % 2.6 % (0.0-7.0); HEMATOCRIT 31.5 % (42.0-52.0); HEMOGLOBIN 10.2 g/dl (14.0-18.0); LYMPHOCYTES # 0.9 10^3/ul (0.8-2.9); LYMPHOCYTES % 7.6 % (15.0-51.0); MEAN CORPUSCULAR HEMOGLOBIN 29.9 pg (29.0-33.0); MEAN CORPUSCULAR HGB CONC 32.4 g/dl (32.0-37.0); MEAN CORPUSCULAR VOLUME 92.4 fl (82.0-101.0); MEAN PLATELET VOLUME 11.9 fl (7.4-10.4); MONOCYTES % 17.1 % (0.0-11.0); NEUTROPHIL # 8.4 10^3/ul (1.6-7.5); NEUTROPHILS % 71.7 % (39.0-77.0); PLATELET COUNT 236 10^3/UL (140-415); POSITIVE DIFF @See below; RED BLOOD COUNT 3.41 10^6/ul (4.70-6.10); RED CELL DISTRIBUTION WIDTH 13.2 % (11.5-14.5)
[2019-06-14 06:46] LABS: WHITE BLOOD COUNT 11.7 10^3/ul (4.8-10.8)
[2019-06-14 07:19] LABS: ANION GAP 7 (5-13); BLOOD UREA NITROGEN 44 mg/dl (7-20); CALCIUM 9.6 mg/dl (8.4-10.2); CARBON DIOXIDE 31 mmol/L (21-31); CHLORIDE 97 mmol/L (97-110); CREATININE 1.73 mg/dl (0.61-1.24); Estimated GFR 40 mL/min (>60); GLUCOSE 134 mg/dl (70-220); POTASSIUM 4.7 mmol/L (3.5-5.1); SODIUM 135 mmol/L (135-144)
[2019-06-14] MEDS: APIXABAN 5 MG TABLET PO ×2 (08:25→21:04)
[2019-06-14] MEDS: METOPROLOL 50 MG TAB PO ×3 (08:26→21:05)
[2019-06-14] MEDS: DOCUSATE SODIUM 250 MG CAP PO (08:27)
[2019-06-14] MEDS: POLYETHYLENE GLYCOL 17 GM PACKET PO (08:28)
[2019-06-14] MEDS: FAMOTIDINE 20 MG INJ IV (17:13)
[2019-06-14] MEDS: TAMSULOSIN (SR) 0.4 MG CAP PO (21:04)
[2019-06-15] MEDS: HYDROCODONE/APAP (7.5/325) TAB PO ×2 (00:26→08:11)
[2019-06-15] MEDS: ONDANSETRON 4 MG INJ IV (00:56)
[2019-06-15 06:40] LABS: ADD MAN DIFF? NO
[2019-06-15 06:42] LABS: WHITE BLOOD COUNT 11.6 10^3/ul (4.8-10.8)
[2019-06-15 06:42] LABS: ABNORMAL IP MESSAGE 1; BASOPHIL # 0.1 10^3/ul (0.0-0.1); BASOPHILS % 0.6 % (0.0-2.0); EOSINOPHILS # 0.4 10^3/ul (0.0-0.5); EOSINOPHILS % 3.7 % (0.0-7.0); HEMATOCRIT 30.4 % (42.0-52.0); LYMPHOCYTES # 1.3 10^3/ul (0.8-2.9); LYMPHOCYTES % 10.9 % (15.0-51.0); MEAN CORPUSCULAR HEMOGLOBIN 30.2 pg (29.0-33.0); MEAN CORPUSCULAR HGB CONC 32.9 g/dl (32.0-37.0); MEAN CORPUSCULAR VOLUME 91.8 fl (82.0-101.0); MEAN PLATELET VOLUME 11.9 fl (7.4-10.4); MONOCYTES % 17.4 % (0.0-11.0); NEUTROPHIL # 7.7 10^3/ul (1.6-7.5); NEUTROPHILS % 66.5 % (39.0-77.0); PLATELET COUNT 249 10^3/UL (140-415); POSITIVE DIFF @See below; RED BLOOD COUNT 3.31 10^6/ul (4.70-6.10)
[2019-06-15 07:04] LABS: MAGNESIUM 1.8 mg/dl (1.7-2.5)
[2019-06-15 07:04] LABS: PHOSPHORUS 4.2 mg/dl (2.5-4.9)
[2019-06-15 07:08] LABS: ANION GAP 8 (5-13); BLOOD UREA NITROGEN 42 mg/dl (7-20); CALCIUM 9.6 mg/dl (8.4-10.2); CARBON DIOXIDE 30 mmol/L (21-31); CHLORIDE 99 mmol/L (97-110); CREATININE 1.56 mg/dl (0.61-1.24); Estimated GFR 45 mL/min (>60); GLUCOSE 127 mg/dl (70-220); POTASSIUM 4.4 mmol/L (3.5-5.1); SODIUM 137 mmol/L (135-144)
[2019-06-15] MEDS: DOCUSATE SODIUM 250 MG CAP PO (08:11)
[2019-06-15] MEDS: POLYETHYLENE GLYCOL 17 GM PACKET PO (08:11)
[2019-06-15] MEDS: APIXABAN 5 MG TABLET PO (08:11)
[2019-06-15] MEDS: FAMOTIDINE 20 MG INJ IV (08:12)
[2019-06-15] MEDS: METOPROLOL 50 MG TAB PO ×2 (08:12→12:24)
== END 2019-06-15 14:30 | disposition left against medical advice (07) | DRG 388 ==
LOC: E/R 03:21 → TEL 06:06
DX: K56.609 Unspecified intestinal obstruction, unspecified as to partial versus complete obstruction (principal); N17.0 Acute kidney failure with tubular necrosis; E87.2 Acidosis; N25.81 Secondary hyperparathyroidism of renal origin; Z68.42 Body mass index [BMI] 45.0-49.9, adult; K56.7 Ileus, unspecified; E87.5 Hyperkalemia; E83.39 Other disorders of phosphorus metabolism; E83.42 Hypomagnesemia; E66.01 Morbid (severe) obesity due to excess calories; E86.0 Dehydration; E78.5 Hyperlipidemia, unspecified; E02 Subclinical iodine-deficiency hypothyroidism; F41.9 Anxiety disorder, unspecified; F32.9 Major depressive disorder, single episode, unspecified; F29 Unspecified psychosis not due to a substance or known physiological condition; G47.33 Obstructive sleep apnea (adult) (pediatric); I12.9 Hypertensive chronic kidney disease with stage 1 through stage 4 chronic kidney disease, or unspecified chronic kidney disease; I48.2 Chronic atrial fibrillation; K43.5 Parastomal hernia without obstruction or gangrene; N18.9 Chronic kidney disease, unspecified; N20.0 Calculus of kidney; N40.0 Benign prostatic hyperplasia without lower urinary tract symptoms; Z53.20 Procedure and treatment not carried out because of patient's decision for unspecified reasons; Z71.3 Dietary counseling and surveillance; Z93.3 Colostomy status; Z90.49 Acquired absence of other specified parts of digestive tract; Z87.891 Personal history of nicotine dependence
CPT/HCPCS: 36415; 36600; 71045; 74176; 76705; 78226; 80048; 80053; 80076; 80162; 81001; 82550; 82553; 82803; 82962; 83690; 83735; 84100; 84300; 84439; 84443; 84484; 85025; 85610; 85730; 93005; 93306; 96374; 96375; 97161; 99285-25